=== PATIENT | female | born 2000 | race Caucasian/White ===

== ENCOUNTER 2019-12-24 12:19 | Emergency (ER) | payer OTHER, SELFPAY ==
[2019-12-24 12:28] VITALS: BP 108/66; PULSE 81; RESP 16; TEMP 36.8; O2SAT 98
--- NOTE | 2019-12-24 12:41 | ED.URI ---
HPI - URI/Sore Throat General Chief Complaint: Upper Respiratory Infection Stated Complaint: fatigue/difficulty breathing Time Seen by Provider: 12/24/19 12:41 Source: patient and RN notes reviewed History of Present Illness HPI Narrative: Patient is a 19-year-old female who presents the urgent care with complaints of fatigue. Patient states that 2 weeks ago she had 1 episode of chest tightness while running. Patient also reported of some upper back discomfort. Patient denies of any shortness of breath or chest tightness at this time. States that she has had a dry cough. States that she also feels some mild sinus pressure and bilateral ear pressure. Patient took Sudafed x1 yesterday. Denies of any fever, nausea, vomiting. Patient states that her main issue is the extreme fatigue and her Faith and mother would like her to be tested for COVID . Patient denies of any other acute complaints. No acute distress noted. Patient read the plan of care. Related Data Home Medications Medication Instructions Recorded Confirmed No Home Medications 12/24/19 12/24/19 Allergies Allergy/AdvReac Type Severity Reaction Status Date / Time codeine AdvReac Nausea and Verified 12/24/19 12:36 Vomiting Sulfa (Sulfonamide AdvReac Nausea and Verified 12/24/19 12:36 Antibiotics) Vomiting Review of Systems Review of Systems: Narrative: CONSTITUTIONAL: Denies fever, chills, or sweats. EYES: Denies visual changes, redness, or discharge. ENT: Denies rhinorrhea, congestion, sore throat. Reports of clear drainage and bilateral otalgia CARDIOVASCULAR: Denies chest pain, palpitations, or edema. RESPIRATORY: Active dry cough without dyspnea GASTROINTESTINAL: Denies abdominal pain, nausea, vomiting, or diarrhea. GENITOURINARY: Denies dysuria or hematuria. SKIN: Denies rash or itching. MUSCULOSKELETAL: Denies back pain, joint pain; reports of fatigue NEUROLOGIC: Denies headache, numbness, or weakness. All other systems reviewed are negative, except as documented in HPI. PMFSH Comments At the time of my signature, I reviewed and agree with the nursing past medical, surgical, social, and family history. There is no relevant family history pertinent to the patient complaint. Exam Narrative: Exam Narrative: GENERAL: This is a well-nourished, well-developed patient, in no apparent distress. HEAD: normocephalic, atraumatic. EYES: PERRL. Sclera clear/white. Vision is grossly intact. EARS: External ears normal, auditory canals clear and without drainage, TMs normal without perforation. Hearing grossly intact. NOSE: External nose normal with no obvious nasal discharge, nares without redness, no rhinorrhea. THROAT: Mucous membranes moist, posterior pharynx clear. NECK: Neck supple, non-tender without lymphadenopathy, mild clear postnasal drainage CARDIOVASCULAR: Regular rate and rhythm without murmurs, gallops, or rubs. RESPIRATORY: Clear to auscultation. Breath sounds equal bilaterally. No wheezes, rales, or rhonchi. GASTROINTESTINAL: Abdomen soft, non-tender, nondistended. SKIN: warm, intact with no suspicious lesions or rash, good texture and turgor. NEURO: awake, alert, and oriented to person, place and time. There were no obvious focal neurologic abnormalities. EXTREMITIES: No clubbing, cyanosis, or edema. Course Vital Signs Vital signs: Vital Signs Temperature 98.2 F 12/24/19 12:28 Pulse Rate 81 12/24/19 12:28 Respiratory Rate 16 12/24/19 12:28 Blood Pressure 108/66 12/24/19 12:28 Pulse Oximetry 98 12/24/19 12:28 Temperature 98.2 F 12/24/19 12:28 Pulse Rate 81 12/24/19 12:28 Respiratory Rate 16 12/24/19 12:28 Blood Pressure 108/66 12/24/19 12:28 Pulse Oximetry 98 12/24/19 12:28 Reviewed MDM - URI/Sore Throat MDM Narrative Medical decision making narrative: Advised the patient to increase her water intake and rest. Gave her strict instructions that if she develops any return of chest tightness ass
== END 2019-12-24 13:04 | disposition home or self-care (01) ==
PROVIDERS: Emergency Provider Nurse Practitioner Family
DX: Z20.828 Contact with and (suspected) exposure to other viral communicable diseases (principal); R05 Cough; R53.83 Other fatigue
CPT/HCPCS: 99201; G0463

== ENCOUNTER 2022-04-26 10:50 | Emergency (ER) | payer OTHER, SELFPAY ==
[2022-04-26 11:03] VITALS: BP 124/60; PULSE 84; RESP 20; TEMP 36.7; O2SAT 100
--- NOTE | 2022-04-26 11:36 | ED.FEMALEGU ---
HPI - Female Genitourinary General Chief complaint: MAT WEAVER Stated complaint: Flank Pain Time Seen by Provider: 04/26/22 11:37 Source: patient and RN notes reviewed Mode of arrival: ambulatory Limitations: no limitations History of Present Illness HPI Narrative: 21-year-old female presented for complaint of left lower abdominal/pelvic pain for 6 months. She endorses over the last 3 days pain is worse with walking. She states the pain is worse with walking or sleeping or laying on the left side. Pain is constant, dull, and increases or decreases in intensity. She endorses during ovulation she expels brown/black discolored tissue or vaginal drainage. She endorses regular menstrual cycles. She is not on control. LMP 2 weeks ago. Endorses dyspareunia for 2 years. She does not have an [employer]. Related Data Home Medications Medication Instructions Recorded Confirmed lisdexamfetamine 10 mg capsule 10 mg PO DAILY 04/26/22 04/26/22 (Vyvanse) Allergies Allergy/AdvReac Type Severity Reaction Status Date / Time codeine AdvReac Mild Nausea and Verified 04/26/22 11:15 Vomiting Sulfa (Sulfonamide AdvReac Mild Nausea and Verified 04/26/22 11:15 Antibiotics) Vomiting Review of Systems Review of Systems: CONSTITUTIONAL: Denies body aches, fever, chills, or sweats. CARDIOVASCULAR: Denies chest pain, palpitations, or edema. RESPIRATORY: Denies cough or dyspnea. GASTROINTESTINAL: Denies nausea, vomiting, or diarrhea. GENITOURINARY: Reports pelvic pain denies dysuria, frequency, urgency, hematuria, flank pain SKIN: Denies rash, itching, or wounds. MUSCULOSKELETAL: Denies back pain or myalgia. PMFSH Comments At time of signature, I have reviewed and agree with nursing past medical, surgical, social and family history unless otherwise noted. Please see nursing chart for further information. There is no relevant family history pertinent to the presenting complaint Exam Narrative: GENERAL: Well-appearing and in no acute distress. EYES: EOMI. . ENT: Mucous membranes pink and moist. CHEST: No respiratory distress. Clear to auscultation. HEART: Regular rate and rhythm. ABDOMEN: Soft, nondistended, left suprapubic tenderness with palpation, no palpable mass normal active bowel sounds. No CVA tenderness SKIN: Warm, dry, no rash. PSYCH: Normal affect. Course Course Emergency Course: Patient is aware of diagnosis, understands and agrees to treatment plan. Anticipatory guidance given. Portions of this record may have been created with voice recognition software Level of Care: Express Care Visit Vital Signs Vital signs: Vital Signs Temperature 98.1 F 04/26/22 11:03 Pulse Rate 84 04/26/22 11:03 Respiratory Rate 20 04/26/22 11:03 Blood Pressure 124/60 04/26/22 11:03 Pulse Oximetry 100 04/26/22 11:03 Oxygen Delivery Room Air 04/26/22 11:03 Temperature 98.1 F 04/26/22 11:03 Pulse Rate 84 04/26/22 11:03 Respiratory Rate 20 04/26/22 11:03 Blood Pressure 124/60 04/26/22 11:03 Pulse Oximetry 100 04/26/22 11:03 Oxygen Delivery Room Air 04/26/22 11:03 Reviewed Transfer Transfered to: [facility] Transportation: Other (private vehicle) Transfer rationale: Pt is agreeable to transfer. Requests transfer to hospital via private ambulance. Risks of transportation reviewed with pt including injury, worsening of condition and . v/u. Report called to hospital, spoke with Dr Basilio, accepting physician. Pt is in stable condition at time of transfer. Advised to remain NPO and go directly to the hospital. MDM - Female Genitourinary MDM Narrative Medical decision making narrative: Urine and neg test negative. Patient does not have an [employer] to follow-up and has yet to seek evaluation for this and pain is worsening. Advised ER transfer. Differential Diagnosis Differential diagnosis: Likely urinary tract infection, ovarian cyst and ruptured ovar
== END 2022-04-26 12:15 | disposition short-term general hospital (02) ==
LOC: EXPBETH 10:54
PROVIDERS: Emergency Provider Nurse Practitioner Family
DX: R10.30 Lower abdominal pain, unspecified (principal); G89.29 Other chronic pain
CPT/HCPCS: 81003; 81025; 99212; G0463